=== PATIENT | female | born 1990 | race Hispanic/Latino ===

== ENCOUNTER 2017-03-17 07:27 | Emergency (ER) | payer BC ==
[2017-03-17 07:53] VITALS: BP 132/79; PULSE 82; RESP 18; TEMP 98.5; O2SAT 99
--- NOTE | 2017-03-17 08:45 | ED PDOC ---
Arrival/HPI - General Chief Complaint: Lower Extremity Problem/Injury Time Seen by Provider: 03/17/17 08:02 Historian: Patient - History of Present Illness Narrative History of Present Illness (Text): 03/17/17 08:44 A 27 year old female, LMP was two weeks ago, denies any past medical history, presents to the emergency department complaining of right ankle pain since last night. Patient reports she twisted her ankle while kick boxing. Patient reports to taking Advil for pain. Patient denies any other complaints at this time. Time/Duration: Other (last night) Symptom Onset: Sudden Symptom Course: Unchanged Associated Symptoms (Text): none Past Medical History - Provider Review Nursing Documentation Reviewed: Yes - Infectious Disease Hx of Infectious Diseases: None - Reproductive Menopause: No - Psychiatric Hx Substance Use: No - Anesthesia Hx Anesthesia: No Family/Social History - Physician Review Nursing Documentation Reviewed: Yes Family/Social History: No Known Family HX Smoking Status: Unknown If Ever Smoked Hx Alcohol Use: Yes Frequency of alcohol use: Socially Hx Substance Use: No Allergies/Home Meds Allergies/Adverse Reactions: Allergies seasonal Allergy (Uncoded 03/17/17 07:52) CONGESTION Home Medications: Home Meds Medication Instructions Recorded Confirmed No Known Home Med 03/17/17 03/17/17 Review of Systems - Physician Review All systems were reviewed & negative as marked: Yes - Review of Systems Constitutional: absent: Fevers Musculoskeletal: Other (right ankle pain) Physical Exam - Physical Exam Narrative Physical Exam (Text): 03/17/17 08:43 Constitutional: No acute distress. Head: Normocephalic. Atraumatic. Eyes: PERRL. Back: No CVA tenderness. Musculoskeletal: Tenderness to right ankle, no tenderness to fibular head. No tenderness or swelling of upper extremities. Skin: No rash. Neurologic: Alert, no focal deficit. Vital Signs Reviewed: Yes Vital Signs Temp Pulse Resp BP Pulse Ox 03/17/17 07:48 98.5 F 82 18 132/79 99 Temperature: Afebrile Blood Pressure: Normal Pulse: Regular Respiratory Rate: Normal Appearance: Positive for: Well-Appearing, Non-Toxic, Comfortable Pain Distress: None Mental Status: Positive for: Alert and Oriented X 3 Medical Decision Making ED Course and Treatment: 03/17/17 08:42 Impression: A 27 year old female with right ankle pain. Plan: -- Radiology right ankle -- Radiology right foot -- Reassess and disposition Progress Notes: Patient declines any pain medications. 03/17/17 09:03 Right Foot Radiographs Creator : Sarmad Bacon MD IMPRESSION: Normal right foot radiographs. 03/17/17 09:04 Right Ankle Radiographs Creator : Sarmad Bacon MD IMPRESSION: Mild lateral soft tissue swelling. No evidence of acute fracture. 03/17/17 09:18 ZAN wrap applied. Crutches provided. Ice, rest, analgesia, return to ED for worsening pain, fever, or any other problem. - RAD Interpretation Radiology Orders: 03/17/17 08:03 ANKLE RIGHT 3 VIEWS ROUTINE [RAD] Stat FOOT RIGHT 3 VIEWS ROUTINE [RAD] Stat - Scribe Statement The provider has reviewed the documentation as recorded by the Sandi Yeboah Provider Scribe Attestation: All medical record entries made by the Scribe were at my direction and personally dictated by me. I have reviewed the chart and agree that the record accurately reflects my personal performance of the history, physical exam, medical decision making, and the department course for this patient. I have also personally directed, reviewed, and agree with the discharge instructions and disposition. Disposition/Present on Arrival - Present on Arrival Any Indicators Present on Arrival: No History of DVT/PE: No History of Uncontrolled Diabetes: No Urinary Catheter: No History of Decub. Ulcer: No History Surgical Site Infection Following: None - Disposition Have Diagnosis and Disposition been Completed?: Yes Diagnosis: Ankle sprain Disposition: HOME/ ROUTINE Disposition Time: 08:45 Patient Plan: Discharge Condition: STABLE Discharge Instructions (ExitCare): Ankle Sprain (ED) Referrals: Jina Gage, [Primary Care Provider] - Follow up with primary Forms: [employer] (Irish)
--- NOTE | 2017-03-17 09:02 | RAD ---
PROCEDURE: Right Ankle Radiographs. HISTORY: ankle injur COMPARISON: None FINDINGS: BONES: Normal. No fracture. JOINTS: Normal. No osteoarthritis. Ankle mortise maintained. Talar dome intact SOFT TISSUES: Mild lateral soft tissue swelling, nonspecific. OTHER FINDINGS: None. IMPRESSION: Mild lateral soft tissue swelling. No evidence of acute fracture.
--- NOTE | 2017-03-17 09:03 | RAD ---
PROCEDURE: Right Foot Radiographs. HISTORY: pain at base of 5th digit COMPARISON: None. FINDINGS: BONES: Normal. No fracture. JOINTS: Normal. SOFT TISSUES: Normal. OTHER FINDINGS: None. IMPRESSION: Normal right foot radiographs.
== END 2017-03-17 09:30 | disposition home or self-care (01) ==
LOC: ED 07:27
DX: S93.401A Sprain of unspecified ligament of right ankle, initial encounter (principal); X50.1XXA Overexertion from prolonged static or awkward postures, initial encounter; Y93.89 Activity, other specified; Y92.89 Other specified places as the place of occurrence of the external cause